=== PATIENT | female | born 1935 | race Caucasian/White ===

== ENCOUNTER → 2017-05-02 | Outpatient (CLI) | payer MEDICARE, BC ==
--- NOTE | 2017-05-03 13:37 | MM ---
Reason for exam: screening (asymptomatic). Last mammogram was performed 12 years and 7 months ago. History: Patient is postmenopausal and had first child after 29. Physical Findings: A clinical breast exam by your physician is recommended on an annual basis and results should be correlated with mammographic findings. MG Screening Mammo w CAD Bilateral CC and MLO view(s) were taken. No prior studies available for comparison. There are scattered fibroglandular densities. Finding: There are typically benign vascular calcifications in both breasts. ASSESSMENT: Benign, BI-RAD 2 RECOMMENDATION: Routine screening mammogram of both breasts in 1 year.
== END | disposition home or self-care (01) ==
LOC: RADMAMWWP 09:47
PROVIDERS: ATTEND Family Medicine
DX: Z12.31 Encounter for screening mammogram for malignant neoplasm of breast (principal)
CPT/HCPCS: 77067

== ENCOUNTER 2020-10-12 08:32 | Outpatient (CLI) | payer MEDICARE, BC | END 2020-10-12 09:51 | disposition home or self-care (01) | LOC: LABWHC1 08:32 | PROVIDERS: ATTEND Family Medicine | DX: Z53.9 Procedure and treatment not carried out, unspecified reason (principal) ==

== ENCOUNTER → 2020-10-27 | Outpatient (CLI) | payer MEDICARE, BC ==
--- NOTE | 2020-10-27 17:13 | US ---
EXAMINATION TYPE: US abdomen complete DATE OF EXAM: 10/27/2020 COMPARISON: Prev Renal only, 04/26/2015 CLINICAL HISTORY: R10.9 Abdominal pain. Pt states midline ABD discomfort EXAM MEASUREMENTS: Liver Length: 14.6 cm Gallbladder Wall: 0.2 cm CBD: 0.5 cm Spleen: 7.7 cm Right Kidney: 11.4 x 3.7 x 4.7 cm Left Kidney: 9.8 x 4.5 x 5.4 cm Pancreas: wnl, tail obscured by overlying bowel gas Liver: Small nonshadowing echogenic focus right posterior lobe= 0.4 cm Gallbladder: wnl Evidence for sonographic Ardon's sign: No CBD: wnl Spleen: wnl Right Kidney: Small cyst lower pole= 0.7 cm, otherwise appeared wnl Left Kidney: Multicystic, largest cyst upper pole= 3.8 x 3.5 x 4.5 cm, this is smaller than the prev ious cyst 6.1 cm. Upper IVC: wnl Abd Aorta: Wall calcifications IMPRESSION: 1. Bilateral renal cysts greater on the left. 2. Nonshadowing echogenic focus within the liver may be small calcified granuloma. Short-term 6 month follow-up ultrasound can be performed.
== END | disposition home or self-care (01) ==
LOC: RADUSWWP 07:02
PROVIDERS: ATTEND Family Medicine
DX: N28.1 Cyst of kidney, acquired (principal)
CPT/HCPCS: 76700

== ENCOUNTER → 2021-02-18 | Outpatient (CLI) | payer MEDICARE, BC ==
--- NOTE | 2021-02-18 10:58 | ECHOF ---
Referral Reason:R07.9 Chest pain, unspecified MEASUREMENTS -------- HEIGHT: 165.1 cm WEIGHT: 59.0 kg BP: 178/81 RVIDd: 3.2 cm (< 3.3) IVSd: 1.3 cm (0.6 - 1.1) LVIDd: 3.2 cm (3.9 - 5.3) LVPWd: 1.2 cm (0.6 - 1.1) IVSs: 1.6 cm LVIDs: 2.1 cm LVPWs: 1.4 cm LA Diam: 3.1 cm (2.7 - 3.8) LAESV Index (A-L): 19.45 ml/m Ao Diam: 3.0 cm (2.0 - 3.7) AV Cusp: 1.9 cm (1.5 - 2.6) MV EXCURSION: 14.273 mm (> 18.000) MV EF SLOPE: 59 mm/s (70 - 150) EPSS: 0.6 cm MV E Eleno: 0.49 m/s MV DecT: 375 ms MV A Eleno: 0.95 m/s MV E/A Ratio: 0.51 RAP: 5.00 mmHg RVSP: 38.78 mmHg FINDINGS -------- Sinus rhythm. This was a technically adequate study. The left ventricular size is normal. There is mild concentric left ventricular hypertrophy. Overa ll left ventricular systolic function is normal with, an EF between 55 - 60 %. The right ventricle is normal in size. Normal LA size by volume 22+/-6 ml/m2. The right atrium is normal in size. Interatrial and interventricular septum intact. There is mild aortic valve sclerosis. The mitral valve is normal. Mild tricuspid regurgitation present. There is mild pulmonary hypertension. The right ventricular systolic pressure, as measured by Doppler, is 38.78mmHg. There is no pulmonic regurgitation present. The aortic root size is normal. Normal inferior vena cava with normal inspiratory collapse consistent with estimated right atrial pre ssure of 5 mmHg. There is no pericardial effusion. CONCLUSIONS -------- 1. The left ventricular size is normal. 2. There is mild concentric left ventricular hypertrophy. 3. Overall left ventricular systolic function is normal with, an EF between 55 - 60 %. 4. There is mild aortic valve sclerosis. 5. Mild tricuspid regurgitation present. 6. There is mild pulmonary hypertension. 7. The right ventricular systolic pressure, as measured by Doppler, is 38.78mmHg. 8. There is no pulmonic regurgitation present. 9. There is no pericardial effusion. GATEMAN: Traci Soria RDCS
== END | disposition home or self-care (01) ==
LOC: RADECHMAIN 08:35
PROVIDERS: ATTEND Family Medicine
DX: I08.2 Rheumatic disorders of both aortic and tricuspid valves (principal); I27.20 Pulmonary hypertension, unspecified
CPT/HCPCS: 93306

== ENCOUNTER 2022-04-10 07:47 | Day surgery (SDC) | payer MEDICARE, BC ==
[2022-04-05 14:23] VITALS: BMI 20.7
--- NOTE | 2022-04-10 07:36 | P.GSHP ---
History of Present Illness H&P Date: 04/10/22 CHIEF COMPLAINT: Colon screen HISTORY OF PRESENT ILLNESS: The patient is a 86-year-old female who presents for colon screen. Lower endoscopy was offered for further evaluation and management. PAST MEDICAL HISTORY: Please see list. PAST SURGICAL HISTORY: Please see list. MEDICATIONS: Please see list. ALLERGIES: Please see list. SOCIAL HISTORY: No illicit drug use FAMILY HISTORY: No reports of Crohn disease or ulcerative colitis. REVIEW OF ORGAN SYSTEMS: CONSTITUTIONAL: No reports of fevers or chills. PHYSICAL EXAM: VITAL SIGNS: Stable GENERAL: Well-developed pleasant in no acute distress. HEENT: No scleral icterus. Extraocular movements grossly intact. Moist buccal mucosa. NECK: Supple without lymphadenopathy. CHEST: Unlabored respirations. Equal bilateral excursions. CARDIOVASCULAR: Regular rate and rhythm. Distal 2+ pulses. ABDOMEN: Soft, nontender, nondistended. MUSCULOSKELETAL: No clubbing, cyanosis, or edema. ASSESSMENT: 1. Colon screen. PLAN: 1. Recommend proceeding with a lower endoscopy Past Medical History Additional Past Medical History / Comment(s): osteoporosis, left inguinal hernia, occassional UTI. 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 - Past Family History Father Family Medical History: Cancer Additional Family Medical History / Comment(s): colon Sister(s) History Unknown: Yes Family Medical History: Cancer Additional Family Medical History / Comment(s): lung Medications and Allergies Home Medications Medication Instructions Recorded Confirmed Type Aspirin 325 mg PO BID PRN 04/05/22 04/05/22 History Calcium Carbonate [Calcium] 60 mg PO DAILY 04/05/22 04/05/22 History Cholecalciferol [Vitamin D3 (25 25 mcg PO DAILY 04/05/22 04/05/22 History Mcg = 1000 Iu)] Cognium 1 tab PO DAILY 04/05/22 04/05/22 History Eye Vitamin 1 tab PO DAILY 04/05/22 04/05/22 History Glucosamine Sulfate 200 mg PO DAILY 04/05/22 04/05/22 History Liver Aid 1 tab PO DAILY 04/05/22 04/05/22 History Magnesium Oxide [Magnesium] 500 mg PO DAILY 04/05/22 04/05/22 History [place]-3 Fatty Acids [[place]-3] 1,000 mg PO DAILY 04/05/22 04/05/22 History [place]-3/Dha/Epa/Fish Oil [Fish Oil 1 each PO DAILY 04/05/22 04/05/22 History 500 mg Softgel] Potassium Citrate 1 tab PO DAILY 04/05/22 04/05/22 History Zinc Gluconate [Zinc] 50 mg PO DAILY 04/05/22 04/05/22 History Allergies Allergy/AdvReac Type Severity Reaction Status Date / Time No Known Allergies Allergy Verified 04/05/22 13:44
[2022-04-10] MEDS ORDERED: LIDOCAINE 1% (10MG/ML) FOR IV START INTRADERMA PRN (08:37)
[2022-04-10] MEDS ORDERED: LACTATED RINGERS 1,000 ML IV SCH (08:37)
[2022-04-10 08:45] VITALS: TEMP 98.2
[2022-04-10] MEDS ORDERED: PROPOFOL 10 MG/ML 20 ML VIAL IV ONE (09:28)
[2022-04-10] MEDS ORDERED: LIDOCAINE 2% INJ 20 MG/ML (2 ML VIAL) ONE (09:28)
--- NOTE | 2022-04-10 10:04 | P.PCN ---
Date of Procedure: 04/10/22 Description of Procedure: PREOPERATIVE DIAGNOSIS: Rectal bleeding Personal history of colon polyps Family history malignant colon polyps POSTOPERATIVE DIAGNOSIS: Tubular adenoma hepatic flexure Sigmoid diverticulosis, severe Internal hemorrhoids, grade 3 OPERATION: Colonoscopy to the ileocecal valve and appendiceal orifice, cecum Colonoscopy with cold forceps biopsy SURGEON: Aliyah George MD. ANESTHESIA: MAC. INDICATIONS: The patient is an 86-year-old male who presents with rectal bleeding, family history of malignant colon polyps and personal history of colon polyps. Last colonoscopy 5 years. Benefits and risks were described and informed consent was obtained. DESCRIPTION OF PROCEDURE: The patient had undergone Sutab prep. The patient had been brought into the operating room and laid in the left lateral decubitus position. After adequate intravenous sedation, the rectum was examined with 2% lidocaine jelly. External hemorrhoids were encountered. The rectal tone was within normal limits. No lesions were palpated in the rectal vault. An Olympus colonoscope was advanced until the cecum, ileocecal valve and appendiceal orifice were clearly viewed. The prep was fair. Sigmoid diverticulosis severe was encountered. Abdominal pressure was used to advance the scope. Colonic polyps were found and removed. No evidence of focal colitis was found. Retroflexion of the scope demonstrated grade 3 internal hemorrhoids without active bleeding or inflammation. The colon was desufflated. The patient had tolerated the procedure well. Withdrawal time was over 6 minutes. FINDINGS: Aronchick preparation quality scale 3 (1-5) Internal hemorrhoids, grade 3 External hemorrhoids, grade 3. No arteriovenous malformations. Sigmoid diverticulosis, severe with redundant Removal of 1 polyps: - Cold forceps biopsy at hepatic flexure, 5 mm polyp. No focal colitis. RECOMMENDATIONS: Repeat colonoscopy 5 years, 2027 or sooner for issues Plan - Discharge Summary New Discharge Prescriptions: Continue Cholecalciferol [Vitamin D3 (25 Mcg = 1000 Iu)] 25 mcg PO DAILY Calcium Carbonate [Calcium] 60 mg PO DAILY [place]-3/Dha/Epa/Fish Oil [Fish Oil 500 mg Softgel] 1 each PO DAILY Zinc Gluconate [Zinc] 50 mg PO DAILY Potassium Citrate 1 tab PO DAILY [place]-3 Fatty Acids [[place]-3] 1,000 mg PO DAILY Glucosamine Sulfate 200 mg PO DAILY Eye Vitamin 1 tab PO DAILY Aspirin 325 mg PO BID PRN PRN Reason: Pain Magnesium Oxide [Magnesium] 500 mg PO DAILY Liver Aid 1 tab PO DAILY Cognium 1 tab PO DAILY Discharge Medication List Aspirin 325 mg PO BID PRN 04/05/22 [History] Calcium Carbonate [Calcium] 60 mg PO DAILY 04/05/22 [History] Cholecalciferol [Vitamin D3 (25 Mcg = 1000 Iu)] 25 mcg PO DAILY 04/05/22 [History] Cognium 1 tab PO DAILY 04/05/22 [History] Eye Vitamin 1 tab PO DAILY 04/05/22 [History] Glucosamine Sulfate 200 mg PO DAILY 04/05/22 [History] Liver Aid 1 tab PO DAILY 04/05/22 [History] Magnesium Oxide [Magnesium] 500 mg PO DAILY 04/05/22 [History] [place]-3 Fatty Acids [[place]-3] 1,000 mg PO DAILY 04/05/22 [History] [place]-3/Dha/Epa/Fish Oil [Fish Oil 500 mg Softgel] 1 each PO DAILY 04/05/22 [History] Potassium Citrate 1 tab PO DAILY 04/05/22 [History] Zinc Gluconate [Zinc] 50 mg PO DAILY 04/05/22 [History] Follow up Appointment(s)/Referral(s): Aliyah George MD [STAFF PHYSICIAN] - 04/18/22 Patient Instructions/Handouts: Diverticulosis Diet (GEN), Diverticulosis (ED), Colorectal Polyps (GEN) Activity/Diet/Wound Care/Special Instructions: Repeat colonoscopy as needed Discharge Disposition: HOME SELF-CARE
[2022-04-10 10:44] VITALS: BP 135/70; PULSE 69; RESP 20
== END 2022-04-10 10:40 | disposition home or self-care (01) ==
LOC: ORWHC2ENDO 07:47
PROVIDERS: ATTEND Surgery Plastic and Reconstructive Surgery
DX: D12.3 Benign neoplasm of transverse colon (principal); Z80.0 Family history of malignant neoplasm of digestive organs; K64.4 Residual hemorrhoidal skin tags; K57.30 Diverticulosis of large intestine without perforation or abscess without bleeding; K64.2 Third degree hemorrhoids; Z79.899 Other long term (current) drug therapy; Z79.810 Long term (current) use of selective estrogen receptor modulators (SERMs); Z79.82 Long term (current) use of aspirin; Z79.51 Long term (current) use of inhaled steroids; Z79.891 Long term (current) use of opiate analgesic; Z79.52 Long term (current) use of systemic steroids; M81.0 Age-related osteoporosis without current pathological fracture; Z87.19 Personal history of other diseases of the digestive system; Z87.440 Personal history of urinary (tract) infections; Z87.891 Personal history of nicotine dependence; Z80.1 Family history of malignant neoplasm of trachea, bronchus and lung; Z98.890 Other specified postprocedural states
CPT/HCPCS: 88305; 45380; J2704; J2001

== ENCOUNTER 2022-06-02 10:54 | Day surgery (SDC) | payer MEDICARE, BC ==
--- NOTE | 2022-06-02 06:47 | P.GSHP ---
History of Present Illness H&P Date: 06/02/22 CHIEF COMPLAINT: Ventral hernia. HISTORY OF PRESENT ILLNESS: The patient is a 86-year-old female who presents with swelling along the abdomen for over 1 year with pain and tenderness. Findings were consistent with ventral hernia. She reports change in bowel habits as a result. Now she presents for further evaluation and management. PAST MEDICAL HISTORY: Please see list and reviewed. PAST SURGICAL HISTORY: Please see list and reviewed. MEDICATIONS: Please see list and reviewed. ALLERGIES: Please see list and reviewed. SOCIAL HISTORY: Please see list and reviewed. FAMILY HISTORY: No reports of Crohn disease or ulcerative colitis. REVIEW OF ORGAN SYSTEMS: CONSTITUTIONAL: No reports of fevers or chills. LYMPHATIC: The patient denies any lumps and bumps around the neck. ENDOCRINE: Denies any thyroid disorders. Denies any blood sugar glucose intolerance. RESPIRATORY: Denies pneumonia. PHYSICAL EXAM: VITAL SIGNS: Stable GENERAL: Well-developed pleasant female in no acute distress. HEENT: No scleral icterus. Extraocular movements grossly intact. Moist buccal mucosa. NECK: Supple without lymphadenopathy. CHEST: Unlabored respirations. Equal bilateral excursions. CARDIOVASCULAR: Regular rate and rhythm. Distal 2+ pulses. ABDOMEN: Soft, nondistended. Tender along the left lower abdomen MUSCULOSKELETAL: No clubbing, cyanosis, or edema. SKIN: Well perfused. PSYCH: Alert and oriented. No focal or lateralizing signs. ASSESSMENT: 1. Ventral hernia PLAN: 1. Recommend proceeding with robotic ventral hernia repair with mesh. 2. Benefits and risks of surgical intervention was discussed including possibility of open technique. 3. DVT prophylaxis. 4. Antibiotic prophylaxis. 5. She is elevated risk with pre-existing heart disease 6. Nutritional assessment reviewed 7. Non-narcotic pain managment reviewed. Past Medical History Additional Past Medical History / Comment(s): osteoporosis, left inguinal hernia, occassional UTI. reports has no major medical conditions "but doesnt go to the doctor much" recent negative stress test History of Any Multi-Drug Resistant Organisms: None Reported Past Surgical History: Hysterectomy Additional Past Surgical History / Comment(s): hemmorhoidectomy, neck surgery Past Anesthesia/Blood Transfusion Reactions: No Reported Reaction Smoking Status: Former smoker - Past Family History Father Family Medical History: Cancer Additional Family Medical History / Comment(s): colon Sister(s) History Unknown: Yes Family Medical History: Cancer Additional Family Medical History / Comment(s): lung Medications and Allergies Home Medications Medication Instructions Recorded Confirmed Type Aspirin 325 mg PO BID PRN 04/05/22 05/30/22 History Calcium Carbonate [Calcium] 60 mg PO DAILY 04/05/22 05/30/22 History Cholecalciferol [Vitamin D3 (25 25 mcg PO DAILY 04/05/22 05/30/22 History Mcg = 1000 Iu)] Cognium 1 tab PO DAILY 04/05/22 05/30/22 History Eye Vitamin 1 tab PO DAILY 04/05/22 05/30/22 History Glucosamine Sulfate 200 mg PO DAILY 04/05/22 05/30/22 History Liver Aid 1 tab PO DAILY 04/05/22 05/30/22 History Magnesium Oxide [Magnesium] 500 mg PO DAILY 04/05/22 05/30/22 History [place]-3 Fatty Acids [[place]-3] 1,000 mg PO DAILY 04/05/22 05/30/22 History [place]-3/Dha/Epa/Fish Oil [Fish Oil 1 each PO DAILY 04/05/22 05/30/22 History 500 mg Softgel] Potassium Citrate 1 tab PO DAILY 04/05/22 05/30/22 History Zinc Gluconate [Zinc] 50 mg PO DAILY 04/05/22 05/30/22 History Allergies Allergy/AdvReac Type Severity Reaction Status Date / Time No Known Allergies Allergy Verified 05/30/22 11:52
[~2022-06-02 10:54] MED LIST: ACETAMINOPHEN TAB 500 MG TAB PO STA; DEXAMETHASONE SOD PHOSPHATE 4 MG/ML 1 ML VIAL IV ONE; HEPARIN SODIUM,PORCINE/PF 5,000 UNIT/0.5 ML SYRINGE SQ PRN; HYDROmorphone 0.5 MG/0.5 ML SYRINGE IVP PRN; LIDOCAINE 1% (10MG/ML) FOR IV START INTRADERMA PRN; ONDANSETRON 4 MG/2 ML VIAL IVP ONE
[2022-06-02] MEDS: LACTATED RINGERS 1,000 ML IV SCH ×2 (11:34→15:57)
[2022-06-02 11:52] LABS: Basophils # (A) 0.1 k/uL (0-0.2); Basophils % (A) 2 %; Eosinophils # (A) 0.1 k/uL (0-0.7); Eosinophils % (A) 3 %; HGB 16.4 gm/dL (11.4-16.0); Lymphocytes # (A) 1.3 k/uL (1.0-4.8); Lymphocytes % (A) 28 %; MCH 31.8 pg (25.0-35.0); MCHC 34.1 g/dL (31.0-37.0); MCV 93.2 fL (80.0-100.0); Monocytes # (A) 0.3 k/uL (0-1.0); Monocytes % (A) 7 %; Neutrophils # (A) 2.8 k/uL (1.3-7.7); Neutrophils % (A) 58 %; Platelet Count 197 k/uL (150-450); RBC 5.15 m/uL (3.80-5.40); RDW 14.2 % (11.5-15.5); WBC 4.8 k/uL (3.8-10.6)
[2022-06-02] MEDS ORDERED: MIDAZOLAM 2 MG/2 ML VIAL IVP ONE ×2 (12:07→12:09)
[2022-06-02] MEDS ORDERED: LIDOCAINE 2% INJ 20 MG/ML (2 ML VIAL) ONE (12:27)
[2022-06-02] MEDS ORDERED: PHENYLEPHRINE-0.9% NACL SYG 1,000 MCG/10 ML SYRINGE ONE (12:27)
[2022-06-02] MEDS ORDERED: SODIUM CHLORIDE 0.9% (PF) 10 ML VIAL ONE (12:27)
[2022-06-02] MEDS ORDERED: NEOSTIGMINE 1 MG/ML 10 ML VIAL ONE (12:27)
[2022-06-02] MEDS ORDERED: fentaNYL (PF) 50 MCG/ML 2 ML AMP ONE (12:27)
[2022-06-02] MEDS ORDERED: PROPOFOL 10 MG/ML 20 ML VIAL IV ONE (12:27)
[2022-06-02] MEDS ORDERED: GLYCOPYRROLATE 0.2 MG/ML 2 ML VIAL ONE (12:27)
[2022-06-02] MEDS ORDERED: ROPIVACAINE 5 MG/ML 30 ML VIAL ONE (12:27)
[2022-06-02] MEDS ORDERED: ROCURONIUM 10 MG/ML (5 ML VIAL) IV ONE (12:27)
[2022-06-02] MEDS ORDERED: DEXAMETHASONE SOD PHOSPHATE 4 MG/ML 1 ML VIAL ONE (12:27)
[2022-06-02] MEDS ORDERED: ePHEDrine 50 MG/ML 1 ML VIAL ONE (12:27)
--- NOTE | 2022-06-02 12:29 | P.ANPRN ---
Procedure Note - Anesthesia - Nerve Block Performed Bilateral Erector Spinae Single Time Out Performed: Yes Date of Procedure: 06/02/22 Procedure Start Time: 12:06 Procedure Stop Time: 12:13 Location of Patient: PreOp Indication: Acute Post-Operative Pain, Requested by Surgeon Sedation Type: Sedate with meaningful contact maintained Preparation: Sterile Prep Position: Sitting Needle Types: Pajunk Needle Gauge: 21 Ultrasound used to visualize needle placement: Yes Ultrasound used to observe medication spread: Yes Injectate: 0.5% Ropivacaine (see comment for volume) (15 ml +15 ml ns + 4 mg dexamethasone per side) Blood Aspirated: No Pain Paresthesia on Injection Noted: No Resistance on Injection: Normal Image Stored and Saved: Yes Events: Uneventful and Well Tolerated
[2022-06-02] MEDS ORDERED: BUPIVACAIN-EPI 0.25%-1:200,000 30 ML VIAL SQ ONE ×2 (12:55→13:03)
[2022-06-02] MEDS ORDERED: LACTATED RINGERS 1,000 ML IV ONE ×2 (12:56→14:00)
[2022-06-02 13:07] LABS: Calcium 9.1 mg/dL (8.4-10.2); Potassium 4.4 mmol/L (3.5-5.1); Total Bilirubin 0.5 mg/dL (0.2-1.3); Total Protein 6.5 g/dL (6.3-8.2)
[2022-06-02] MEDS ORDERED: HYDROmorphone 1 MG/ML 1 ML SYRINGE IVP PRN (15:16)
[2022-06-02] MEDS ORDERED: NALOXONE 0.4 MG/ML 1 ML VIAL IV PRN (15:16)
[2022-06-02] MEDS ORDERED: ASPIRIN 325 MG TAB PO PRN (15:18)
[2022-06-02] MEDS ORDERED: SODIUM CHLORIDE 0.9% 1,000 ML IV SCH (15:30)
[2022-06-02] MEDS: HEPARIN SODIUM,PORCINE/PF 5,000 UNIT/0.5 ML SYRINGE SQ SCH (21:01)
[2022-06-02] MEDS: ACETAMINOPHEN TAB 325 MG TAB PO PRN (21:01)
--- NOTE | 2022-06-02 21:26 | P.OP ---
Date of Procedure: 06/02/22 Description of Procedure: SURGEON: BENJAMIN BEARD MD PREOPERATIVE DIAGNOSES: 1. Left inguinal swelling and pain 2. Osteoporosis POSTOPERATIVE DIAGNOSES: 1. Incarcerated left inguinal hernia with incarcerated small bowel, initial 2. Left inguinal subfascial tumor, 4 x 4 cm, subfascial/inguinal canal 3. Osteoporosis OPERATION: 1. Robotic assisted da Kell Xi laparoscopic excision of left inguinal tumor, 4 x 4 cm, subfascial/inguinal canal 2. Robotic assisted da Kell Xi laparoscopic left indirect inguinal hernia repair with ventralight ST mesh, 11.4 cm. ANESTHESIA: General with local anesthetic ESTIMATED BLOOD LOSS: 5 mL. SPECIMENS REMOVED: None. COMPLICATIONS: None. FINDINGS: 1. Subfascial left inguinal tumor resected 4 x 4 cm 2. Diastases recti of the lower abdomen INDICATIONS: The patient is a 86-year-old female who presents with history of left-sided pain. Now she presents for definitive surgical intervention. Laparoscopic versus open and robotic approaches were discussed. Benefits and risks including bleeding, infection, and chronic groin pain were reviewed. Placement of mesh was also described. Informed consent was obtained. DESCRIPTION: In the preoperative area, the patient was marked with indelible marker along the left groin. The patient was brought to the operating room and initially laid in supine position. After general induction, the abdomen had been prepped and draped in standard sterile fashion. Ioban draping was also placed. Prior to incision, a timeout protocol was confirmed with surgical team regarding patient's name including procedures to be performed and location along the left groin. Initial positioning for the robotic assisted ports were selected whereby 20 cm superior to the target anatomy, 0 degree 5 mm laparoscopic trocar entry was performed at the left upper quadrant. The abdomen was insufflated to 15 mmHg which she had tolerated well. Diagnostic laparoscopy demonstrated a defect along the left groin. The small bowel was incarcerated in the left groin. No defects were identified along the right groin. Next, along the epigastrium, 8 mm robot trocar was placed. An 8-mm robotic trocar was placed under direct visualization at the right upper quadrant. The 5 mm port was exchanged for a 8 mm trocar. All trocars were positioned 10-cm apart from each other. An additional 12 mm trochars placed along the right lateral upper quadrant. The [employer] Kell Intuitive XI robot was primed, draped, prepared for docking along the right side of the patient. I then went to the Mode[employer] Xi console. The mortgage loan assistant was at bedside for exchange of the robot arms and equipment. At the left groin, the peritoneum was scored over the initial small 3 cm defect. The small bowel was reduced from the incarcerated left inguinal hernia. The hernia sac was evaginated whereby the peritoneum was scored using Endo scissors with cautery. Additionally, a 4 x 4 cm subfascial inguinal canal tumor was excised and evaginated into the peritoneal cavity using vessel sealer Once completely reduced into the abdominal cavity, the peritoneal sac of the hernia was stripped. The sac was resected and then passed off for further pathological analysis. The size of the hernia defect was 3 cm with intraoperative films obtained. Using a nonabsorbable 2-0 VLOC, the peritoneal defect of the left inguinal hernia site was closed using a pursestring suture. The defect was found to be completely closed with complete reduction of the left inguinal hernia was confirmed. As an onlay, an 11.[address] mesh by [employer] was cut in half and entered into the abdominal cavity via the 8 mm trocar. The mesh was tacked to the pelvis using absorbable 2-0 VLOC x 9-inch length sutures. The robot was undocked from the patient's bedside. I then rescrubbed into the case. The specimen was removed from the abdominal cavity from the left upper quadrant port site. [place]-Melany 0 Vicryl was used to close the 12 mm trocar site. Insufflation was released from the abdominal cavity and all instruments were removed from the abdominal cavity. The rest of incisions were reapproximated using 4-0 Monocryl in a running subcuticular fashion. Local anesthetic was placed along the incision including for a groin block. Incisions were cleansed using dilute hydrogen peroxide. Exofin was applied to the skin. At the end of the procedure, the needle, sponge and instrument counts had been verified correct by the ophthalmology surgical technician. The patient had tolerated the procedure well and was taken to the postanesthesia care unit in stable condition.
--- NOTE | 2022-06-02 21:27 | P.PN ---
Progress Note - Text Progress Note Date: 06/02/22 Postoperatively in the recovery room, patient was difficult to arouse after anesthesia with new transient cardiac arrhythmia. Patient recommended to stay overnight for observation including medicine consultation.
[2022-06-03] MEDS: LACTATED RINGERS 1,000 ML IV SCH (04:51)
[2022-06-03 08:14] VITALS: BP 113/64; PULSE 55; RESP 16; TEMP 98.3
[2022-06-03] MEDS: HEPARIN SODIUM,PORCINE/PF 5,000 UNIT/0.5 ML SYRINGE SQ SCH (08:56)
[2022-06-03] MEDS ORDERED: MAGNESIUM OXIDE 400 MG TAB PO SCH (09:00)
--- NOTE | 2022-06-03 09:48 | P.DS ---
Providers Date of admission: 06/02/2022 Expected date of discharge: 06/03/22 Attending physician: Aliyah George Consults: 06/02/22 06:48 Consult Physician Routine Consulting Provider: [facility] Consult Reason/Comments: Anesthesia [facility] Do you want consulting provider notified?: Yes 06/02/22 16:43 Consult Physician Routine Consulting Provider: Bossman Rae Consult Reason/Comments: Medical management Do you want consulting provider notified?: Yes Primary care physician: Eulogio Florentino [facility] Course: This 76-year-old female underwent laparoscopic ventral hernia repair with Dr. Ch. Patient was observed overnight. Patient felt well on postoperative day 1 and wished to go home. Procedures: Ventral hernia repair Patient Condition at Discharge: Good Plan - Discharge Summary Discharge Rx Participant: No New Discharge Prescriptions: New Docusate [Colace] 100 mg PO BID #20 capsule Ibuprofen [Motrin] 600 mg PO Q6HR PRN #40 tab PRN Reason: Pain Acetaminophen Tab [Tylenol] 650 mg PO Q6H #30 tab oxyCODONE HCL [OxyIR] 5 mg PO Q6H PRN 3 Days #10 tab PRN Reason: Pain No Action Cholecalciferol [Vitamin D3 (25 Mcg = 1000 Iu)] 25 mcg PO DAILY Calcium Carbonate [Calcium] 60 mg PO DAILY [place]-3/Dha/Epa/Fish Oil [Fish Oil 500 mg Softgel] 1 each PO DAILY Zinc Gluconate [Zinc] 50 mg PO DAILY Potassium Citrate 1 tab PO DAILY [place]-3 Fatty Acids [[place]-3] 1,000 mg PO DAILY Glucosamine Sulfate 200 mg PO DAILY Eye Vitamin 1 tab PO DAILY Aspirin 325 mg PO BID PRN PRN Reason: Pain Magnesium Oxide [Magnesium] 500 mg PO DAILY Liver Aid 1 tab PO DAILY Cognium 1 tab PO DAILY Discharge Medication List Aspirin 325 mg PO BID PRN 04/05/22 [History] Calcium Carbonate [Calcium] 60 mg PO DAILY 04/05/22 [History] Cholecalciferol [Vitamin D3 (25 Mcg = 1000 Iu)] 25 mcg PO DAILY 04/05/22 [History] Cognium 1 tab PO DAILY 04/05/22 [History] Eye Vitamin 1 tab PO DAILY 04/05/22 [History] Glucosamine Sulfate 200 mg PO DAILY 04/05/22 [History] Liver Aid 1 tab PO DAILY 04/05/22 [History] Magnesium Oxide [Magnesium] 500 mg PO DAILY 04/05/22 [History] [place]-3 Fatty Acids [[place]-3] 1,000 mg PO DAILY 04/05/22 [History] [place]-3/Dha/Epa/Fish Oil [Fish Oil 500 mg Softgel] 1 each PO DAILY 04/05/22 [History] Potassium Citrate 1 tab PO DAILY 04/05/22 [History] Zinc Gluconate [Zinc] 50 mg PO DAILY 04/05/22 [History] Acetaminophen Tab [Tylenol] 650 mg PO Q6H #30 tab 06/03/22 [Rx] Docusate [Colace] 100 mg PO BID #20 capsule 06/03/22 [Rx] Ibuprofen [Motrin] 600 mg PO Q6HR PRN #40 tab 06/03/22 [Rx] oxyCODONE HCL [OxyIR] 5 mg PO Q6H PRN 3 Days #10 tab 06/03/22 [Rx] Follow up Appointment(s)/Referral(s): Aliyah George MD [STAFF PHYSICIAN] - 1 Week
--- NOTE | 2022-06-03 11:00 | P.PN ---
Progress Note - Text Progress Note Date: 06/03/22 Discussion with care team. Patient doing well. No cardiac events overnight. Only requiring tylenol. Medical reconciliation performed. Abdominal binder ordered. Per nurse, patient was stable at discharge. Patient seen by rounding provider and discharged.
[2022-06-03] MEDS: ACETAMINOPHEN TAB 325 MG TAB PO PRN (13:08)
== END 2022-06-03 13:48 | disposition home or self-care (01) ==
LOC: OR 10:54 → 5NMEDONC 14:07 → OR 06-03 13:48
PROVIDERS: ATTEND Surgery Plastic and Reconstructive Surgery
DX: K40.30 Unilateral inguinal hernia, with obstruction, without gangrene, not specified as recurrent (principal); M81.0 Age-related osteoporosis without current pathological fracture; Z87.440 Personal history of urinary (tract) infections; Z87.891 Personal history of nicotine dependence
CPT/HCPCS: 94760; 86900; 86901; 80053; 85025; 86850; 49650; J2250; J1100; J0690; J2405; J1644 ×2; 88302

== ENCOUNTER 2024-06-13 15:35 | Observation (INO) | payer MEDICARE, BC ==
--- NOTE | 2024-06-13 16:07 | ED ---
General Adult HPI - General Source: patient, RN notes reviewed <Nayeli Vidales - Last Filed: 06/13/24 16:06> <Pallavi Malcolm - Last Filed: 06/14/24 16:29> - General Stated complaint: Chest pain Time Seen by Provider: 06/13/24 15:51 - History of Present Illness Initial comments: Quick [id number] female presenting emergency room with referral from urgent care for complaint of left-sided chest/rib pain. Patient states that this has been going on for a while however states that pain worsened today. States the pain has been radiating up into her armpit. She denies associated difficulty breathing, nausea or vomiting. (Nayeli Vidales) Patient is an 88-year-old female with no significant past medical history presenting today for left-sided chest pain. Patient states has been occurring intermittently over the last year but over the last 2 days has become more constant and changed somewhat in quality. The pain is described as pressure that feels like her bra was too tight. This did not resolve with loosening her block bra. This morning it began radiating to into her left arm. She was seen at a local urgent care and directed to come to the emergency department. She denies shortness of breath, cough, rash, dizziness, headache, numbness or weakn ess. Denies history ACS. Pain worsens with activity and sitting up. Has not tried any medications at home for the pain. No history ACS. Non-smoker. No first-degree relatives with history of a heart attack. No history hypertension, high cholesterol or diabetes. Endorses a gnawing feeling in her stomach but denies abdominal pain. (Pallavi Malcolm) - Related Data Home Medications Medication Instructions Recorded Confirmed Cholecalciferol [Vitamin D3 (25 25 mcg PO DAILY 04/05/22 06/13/24 Mcg = 1000 Iu)] Magnesium Oxide [Magnesium] 500 mg PO DAILY 04/05/22 06/13/24 Ascorbic Acid [Vitamin C] 1,000 mg PO DAILY 06/13/24 06/13/24 Ginkgo Biloba [place] Extract [Ginkgo] 60 mg PO DAILY 06/13/24 06/13/24 [place]-3/Dha/Epa/Fish Oil [Fish Oil 1 cap PO DAILY 06/13/24 06/13/24 1,000 mg Softgel] Allergies Allergy/AdvReac Type Severity Reaction Status Date / Time No Known Allergies Allergy Verified 06/13/24 20:09 Review of Systems ROS Other: All systems not noted in ROS Statement are negative. <Nayeli Vidales - Last Filed: 06/13/24 16:06> ROS Other: All systems not noted in ROS Statement are negative. <Pallavi Malcolm - Last Filed: 06/14/24 16:29> ROS Statement: Those systems with pertinent positive or pertinent negative responses have been documented in the HPI. Past Medical History Additional Past Medical History / Comment(s): osteoporosis, left inguinal hernia, occassional UTI. reports has no major medical conditions "but doesnt go to the doctor much" recent negative stress test History of Any Multi-Drug Resistant Organisms: None Reported Past Surgical History: Hysterectomy Additional Past Surgical History / Comment(s): hemmorhoidectomy, neck surgery Past Anesthesia/Blood Transfusion Reactions: No Reported Reaction Smoking Status: Former smoker - Past Family History Father Family Medical History: Cancer Additional Family Medical History / Comment(s): colon Sister(s) History Unknown: Yes Family Medical History: Cancer Additional Family Medical History / Comment(s): lung <Nayeli Vidales - Last Filed: 06/13/24 16:06> General Exam <Nayeli Vidales - Last Filed: 06/13/24 16:06> <Pallavi Malcolm - Last Filed: 06/14/24 16:29> - General Exam Comments Initial Comments: Visual Physical Exam Vital signs reviewed General: Well-appearing, nontoxic, no acute distress. Head: Normocephalic, atraumatic Eyes: PERRLA, EOMI ENT: Airway patent Chest: Nonlabored breathing Skin: No visual rash, normal skin tone Neuro: Alert and oriented 3 Musculoskeletal: No gross abnormalities (SobeidaNayeli) PE: CONSTITUTIONAL: [no apparent distress, well appearing] SKIN: [warm, dry, no jaundice, hives or petechiae] EYES:[ pupils are equally round, extraocular movements intact without nystagmus, clear conjunctiva, non-icteric sclera] HENT: [normocephalic, atraumatic, moist mucus membranes, oropharynx clear without exudates] NECK: , [Full range of motion, normal appearance] PULMONARY: [clear to auscultation without wheezes, rhonchi, or rales, normal excursion, no accessory muscle use and no stridor] CARDIOVASCULAR:[Chest wall is nontender to palpation, no palpable masses or rashes, regular rate, rhythm, normal S1 and S2. No appreciated murmurs, rubs or gallops. Strong radial pulses with intact distal perfusion. No lower extremity edema] GASTROINTESTINAL: [soft, active bowel sounds throughout, non-tender, non- distended, no palpable masses, no rebound or guarding. No hepatosplenomegaly] GENITOURINARY: MUSCULOSKELETAL: [Extremities have no gross deformity, no edema, redness, or swelling. No calf swelling ] NEUROLOGIC: [_a/o x 3, GCS 15, normal mentation and speech. Moves all extremities x 4 without motor or sensory deficit] PSYCHIATRIC:[ _normal mood and affect, thought process is clear and linear] (Pallavi Malcolm) Course Vital Signs 06/13/24 06/13/24 06/13/24 16:08 17:59 18:00 Temperature 98.0 F 98 F Pulse Rate 100 85 75 Pulse Rate [ Finish Patcher ] Respiratory 17 20 20 Rate Blood Pressure 175/99 170/85 170/85 O2 Sat by Pulse 95 98 98 Oximetry 06/13/24 06/13/24 06/13/24 18:01 18:02 19:05 Temperature Pulse Rate 67 Pulse Rate [ 75 Finish Patcher ] Respiratory 20 16 Rate Blood Pressure 125/72 O2 Sat by Pulse 97 Oximetry 06/13/24 06/14/24 06/14/24 20:55 00:45 01:29 Temperature 98.4 F Pulse Rate 71 62 78 Pulse Rate [ Finish Patcher ] Respiratory 17 18 18 Rate Blood Pressure 130/74 122/62 115/57 O2 Sat by Pulse 97 90 L 93 L Oximetry 06/14/24 06/14/24 06/14/24 03:15 05:00 07:00 Temperature 97.5 F L Pulse Rate 68 63 Pulse Rate [ Finish Patcher ] Respiratory 17 18 Rate Blood Pressure 127/54 123/56 O2 Sat by Pulse 94 L 96 Oximetry 06/14/24 07:10 Temperature Pulse Rate 67 Pulse Rate [ Finish Patcher ] Respiratory 17 Rate Blood Pressure 143/69 O2 Sat by Pulse 96 Oximetry EKG Findings - EKG Comments: EKG Findings:: Sinus rhythm, right bundle branch block, rate 82 bpm intervals within except limits, normal axis, T wave inversion lead V1, V2, V3 as well as aVR,no STEMI compared to EKG performed in May 2022, right bundle branch block is new from prior <Pallavi Malcolm - Last Filed: 06/14/24 16:29> Medical Decision Making <Nayeli Vidales - Last Filed: 06/13/24 16:06> - Lab Data Result diagrams: 06/13/24 16:36 06/13/24 16:36 <Pallavi Malcolm - Last Filed: 06/14/24 16:29> - Medical Decision Making I completed the quick note portion of this chart signed Nayeli Vidales PA-C (Nyaeli Vidales) Was pt. sent in by a medical professional or institution (BRENDA Ovalle, [employer]PER[employer]OR, urgent care, hospital, or fdc...) When possible be specific @ -Patient was sent over from urgent care Did you speak to anyone other than the patient for history (EMS, parent, family, police, friend...)? What history was obtained from this source @ -No Did you review nursing and triage notes (agree or disagree)? Why? @ -I reviewed nursing and triage notes Were old charts reviewed (outside hosp., previous admission, EMS record, old EKG, old radiological studies, urgent care reports/EKG's, fdc records)? Report findings @ -Medical records reviewed reviewed prior EKG, see comparison above Differential Diagnosis (chest pain, altered mental status, abdominal pain women, abdominal pain men, vaginal bleeding, weakness, fever, dyspnea, syncope, headache, dizziness, GI bleed, back pain, seizure, CVA, palpatations, mental health, musculoskeletal)? @ -Differential Chest Pain: Stable Angina, Unstable Angina, STEMI, NSTEMI Aortic Dissection, pericarditis, pleurisy, chostochondirits, Pneumothorax, Musculoskeletal, Esophageal Spasm GERD, Cholecystitis, Pancreatitis, Zoster, this is not meant to be an all- inclusive list. EKG interpreted by me (3pts min.). @ -I personally reviewed chest x-ray see no cardiomegaly, consolidations or pleural effusions I agree with radiologist interpretation X-rays interpreted by me (1pt min.). @ -Personally reviewed chest x-ray, I see no cardiomegaly or pleural effusions I agree with radiologist interpretation CT interpreted by me (1pt min.). @ -None done U/S interpreted by me (1pt. min.). @ -None done What testing was considered but not performed or refused? (CT, X-rays, U/S, labs)? Why? @ -None What meds were considered but not given or refused? Why? @ -None Did you discuss the management of the patient with other professionals (professionals i.e. , PA, [employer]PERVISOR, lab, RT, psych nurse, social services aide, process excellence manager, teacher, retail loss prevention officer, watch case polisher)? Give summary @ -No Was smoking cessation discussed for >3mins.? @ -No Was critical care preformed (if so, how long)? @ -No Were there social determinants of health that impacted care today? How? (Homelessness, low income, unemployed, alcoholism, drug addiction, piper sportation, low edu. Level, literacy, decrease access to med. care, long-term, rehab)? @ -No Was there de-escalation of care discussed even if they declined (Discuss DNR or withdrawal of care, Hospice)? @ -No What co-morbidities impacted this encounter? (DM, HTN, Smoking, COPD, CAD, Cancer, CVA, ARF, Chemo, Hep., AIDS, mental health diagnosis, sleep apnea, morbid obesity)? @ -None Was patient admitted / discharged? Hospital course, mention meds given and route, prescriptions, significant lab abnormalities, going to OR and other pertinent info. @ -admission. Send is an 88-year-old female no significant medical history presenting for left-sided pressure-like chest pain radiating to the left shou lder. Associated gnawing feeling in her stomach and indigestion. No shortness of breath. ATP orders were placed by triage provider. I reviewed these and overall they are reassuring. No STEMI though EKG does not appear entirely reassuring given she has a new right bundle branch block. Discussed with patient plan for admission for chest pain. She is agreeable plan of care. Case was discussed with RADHA Pruett who kindly accepted patient for admission. Undiagnosed new problem with uncertain prognosis? @ -No Drug Therapy requiring intensive monitoring for toxicity (Heparin, Nitro, Insulin, Cardizem)? @ -No Were any procedures done? @ -No Diagnosis/symptom? @ -Chest pain Acute, or Chronic, or Acute on Chronic? Acute Uncomplicated (without systemic symptoms) or Complicated (systemic symptoms)? Uncomplicated Side effects of treatment? @ -No Exacerbation, Progression, or Severe Exacerbation? @ -No Poses a threat to life or bodily function? How? (Chest pain, [place], SD, pneumonia, PE, COPD, DKA, ARF, appy, cholecystitis, CVA, Diverticulitis, Homicidal, Suicidal, threat to staff... and all critical care pts) @Potentially if secondary to ACS (Pallavi Malcolm) - Lab Data Lab Results 06/13/24 06/13/24 06/13/24 Range/Units 16:36 16:36 16:36 WBC 8.0 (3.8-10.6) k/uL RBC 5.14 (3.80-5.40) m/uL Hgb 15.5 (11.4-16.0) gm/dL Hct 48.4 H (34.0-46.0) % MCV 94.0 (80.0-100.0) fL MCH 30.1 (25.0-35.0) pg MCHC 32.0 (31.0-37.0) g/dL RDW 13.9 (11.5-15.5) % Plt Count 231 (150-450) k/uL MPV 7.3 Neutrophils % 69 % Lymphocytes % 22 % Monocytes % 6 % Eosinophils % 1 % Basophils % 1 % Neutrophils # 5.5 (1.3-7.7) k/uL Lymphocytes # 1.8 (1.0-4.8) k/uL Monocytes # 0.5 (0-1.0) k/uL Eosinophils # 0.1 (0-0.7) k/uL Basophils # 0.1 (0-0.2) k/uL PT 10.6 (10.0-12.5) sec INR 1.0 (<1.2) APTT 25.0 (22.0-30.0) sec Sodium 137 (137-145) mmol/L Potassium 4.4 (3.5-5.1) mmol/L Chloride 100 (98-107) mmol/L Carbon Dioxide 27 (22-30) mmol/L Anion Gap 10 mmol/L BUN 19 H (7-17) mg/dL Creatinine 0.86 (0.52-1.04) mg/dL Est GFR (CKD-EPI)AfAm 70 (>60 ml/min/1.73 sqM) Est GFR (CKD-EPI)NonAf 61 (>60 ml/min/1.73 sqM) Glucose 101 H (74-99) mg/dL Calcium 9.6 (8.4-10.2) mg/dL Magnesium 1.9 (1.6-2.3) mg/dL Total Bilirubin 0.5 (0.2-1.3) mg/dL AST 25 (14-36) U/L ALT 19 (4-34) U/L Alkaline Phosphatase 57 (38-126) U/L Troponin I (0.000-0.034) ng/mL Total Protein 7.1 (6.3-8.2) g/dL Albumin 4.5 (3.5-5.0) g/dL Lipase (23-300) U/L 06/13/24 06/13/24 Range/Units 16:36 16:36 WBC (3.8-10.6) k/uL RBC (3.80-5.40) m/uL Hgb (11.4-16.0) gm/dL Hct (34.0-46.0) % MCV (80.0-100.0) fL MCH (25.0-35.0) pg MCHC (31.0-37.0) g/dL RDW (11.5-15.5) % Plt Count (150-450) k/uL MPV Neutrophils % % Lymphocytes % % Monocytes % % Eosinophils % % Basophils % % Neutrophils # (1.3-7.7) k/uL Lymphocytes # (1.0-4.8) k/uL Monocytes # (0-1.0) k/uL Eosinophils # (0-0.7) k/uL Basophils # (0-0.2) k/uL PT (10.0-12.5) sec INR (<1.2) APTT (22.0-30.0) sec Sodium (137-145) mmol/L Potassium (3.5-5.1) mmol/L Chloride (98-107) mmol/L Carbon Dioxide (22-30) mmol/L Anion Gap mmol/L BUN (7-17) mg/dL Creatinine (0.52-1.04) mg/dL Est GFR (CKD-EPI)AfAm (>60 ml/min/1.73 sqM) Est GFR (CKD-EPI)NonAf (>60 ml/min/1.73 sqM) Glucose (74-99) mg/dL Calcium (8.4-10.2) mg/dL Magnesium (1.6-2.3) mg/dL Total Bilirubin (0.2-1.3) mg/dL AST (14-36) U/L ALT (4-34) U/L Alkaline Phosphatase (38-126) U/L Troponin I <0.012 (0.000-0.034) ng/mL Total Protein (6.3-8.2) g/dL Albumin (3.5-5.0) g/dL Lipase 199 (23-300) U/L Disposition <Nayeli Vidales - Last Filed: 06/13/24 16:06> <Pallavi Malcolm - Last Filed: 06/14/24 16:29> Clinical Impression: Chest pain Disposition: ADMITTED IP TO THIS HOSP Condition: Stable
[2024-06-13 16:54] LABS: Basophils # (A) 0.1 k/uL (0-0.2); Basophils % (A) 1 %; Eosinophils # (A) 0.1 k/uL (0-0.7); Eosinophils % (A) 1 %; HCT 48.4 % (34.0-46.0); HGB 15.5 gm/dL (11.4-16.0); Lymphocytes # (A) 1.8 k/uL (1.0-4.8); Lymphocytes % (A) 22 %; MCH 30.1 pg (25.0-35.0); Mean Platelet Volume 7.3; Monocytes # (A) 0.5 k/uL (0-1.0); Monocytes % (A) 6 %; Neutrophils # (A) 5.5 k/uL (1.3-7.7); Neutrophils % (A) 69 %; Platelet Count 231 k/uL (150-450); RBC 5.14 m/uL (3.80-5.40); RDW 13.9 % (11.5-15.5)
[2024-06-13 17:00] LABS: ALT 19 U/L (4-34); AST 25 U/L (14-36); African American GFR (CKD) 70 (>60 ml/min/1.73 sqM); Albumin 4.5 g/dL (3.5-5.0); Alkaline Phosphatase 57 U/L (38-126); Anion Gap 10 mmol/L; Blood Urea Nitrogen 19 mg/dL (7-17); Calcium 9.6 mg/dL (8.4-10.2); Carbon Dioxide 27 mmol/L (22-30); Chloride 100 mmol/L (98-107); Glucose 101 mg/dL (74-99); Magnesium 1.9 mg/dL (1.6-2.3); Non-African American GFR(CKD) 61 (>60 ml/min/1.73 sqM); Potassium 4.4 mmol/L (3.5-5.1); Sodium 137 mmol/L (137-145); Total Bilirubin 0.5 mg/dL (0.2-1.3); Total Protein 7.1 g/dL (6.3-8.2)
[2024-06-13 17:03] LABS: Prothrombin Time 10.6 sec (10.0-12.5)
--- NOTE | 2024-06-13 18:05 | XR ---
EXAMINATION TYPE: XR chest 2V DATE OF EXAM: 06/13/2024 5:49 PM COMPARISON: None CLINICAL INDICATION: Female, 88 years old with history of Chest Pain; [facility] TECHNIQUE: XR chest 2V Frontal and lateral views of the chest. FINDINGS: Lungs/Pleura: There is flattening of the diaphragm with increased lucency of the lungs. No evidence o f pneumothorax, pleural effusion or focal consolidation. Pulmonary vascularity: Unremarkable. Heart/mediastinum: Cardiomediastinal silhouette is unremarkable. Musculoskeletal: No acute osseous pathology. IMPRESSION: 1. No acute cardiopulmonary disease process. 2. COPD changes. [facility], , 06/13/2024 6:03 PM
[2024-06-13] MEDS: ACETAMINOPHEN TAB 500 MG TAB PO STA (18:45)
[2024-06-13] MEDS: ASPIRIN 81 MG PO STA (18:45)
[2024-06-13] MEDS: NITROGLYCERIN SL TABS 0.4 MG TAB SUBLINGUAL STA (18:46)
[2024-06-13] MEDS ORDERED: NALOXONE 0.4 MG/ML 1 ML VIAL IV PRN (20:52)
[2024-06-13] MEDS ORDERED: ACETAMINOPHEN TAB 325 MG TAB PO PRN (20:52)
[2024-06-13] MEDS ORDERED: ALPRAZolam 0.25 MG TAB PO PRN (20:52)
[2024-06-13] MEDS ORDERED: MAG HYDROX/AL HYDROX/SIMETH 30 ML CUP PO PRN (20:52)
[2024-06-13] MEDS ORDERED: traMADol 50 MG TAB PO PRN (20:52)
[2024-06-13] MEDS ORDERED: ONDANSETRON 4 MG/2 ML VIAL IVP PRN (20:52)
[2024-06-13] MEDS ORDERED: CALCIUM CARBONATE 500 MG CHEWABLE PO PRN (20:52)
[2024-06-13] MEDS ORDERED: MORPHINE SULFATE 4 MG/ML SYRINGE IV PRN (20:52)
[2024-06-14] MEDS: FAMOTIDINE 20 MG TAB PO SCH (01:27)
[2024-06-14 07:14] VITALS: BP 143/69; PULSE 67; RESP 17
[2024-06-14 07:43] VITALS: TEMP 97.5
--- NOTE | 2024-06-14 09:43 | P.HPIM ---
History of Present Illness H&P Date: 06/14/24 History of present illness; patient is a 88-year-old lady with no significant past medical history who presented to the ER because of chest pain. Patient stated that she has been having this pain for a couple of months but over the last couple of days the left sided chest pain worsened.chest pain is left-sided, pressure-like, beneath her left breast feels like the if she is wearing a tight bra, radiating down her left arm , related by sitting up and exerting, no relieving factor associated with this chest pain. There was no complaint of orthopnea or PND. There was no complaint of shortness of breath at that time. There was no episode of diaphoresis during this episode of chest pain. Because of this chest pain, she went to an urgent care and she was referred to come to the ER Initial lab work done in the ER showed WBC 8, hemoglobin 15.5, sodium 137, potassium 4.4, BUN 19, creatinine 0.86, glucose 101, troponin 0.012 EKG done in the ER showed heart rate of 91, no ST segment elevation or depression seen, no T-wave inversions seen. Chest x-ray done in the ER showed no acute cardiopulmonary process Patient admitted to internal medicine service REVIEW OF SYSTEMS: CONSTITUTIONAL: No fever, no malaise, no fatigue. HEENT: No recent visual problems or hearing problems. Denied any sore throat. CARDIOVASCULAR: As mentioned HPI PULMONARY: Mentioned above GASTROINTESTINAL: No diarrhea, no nausea, no vomiting, no abdominal pain. NEUROLOGICAL: No headaches, no weakness, no numbness. HEMATOLOGICAL: Denies any bleeding or petechiae. GENITOURINARY: Denies any burning micturition, frequency, or urgency. MUSCULOSKELETAL/RHEUMATOLOGICAL: Denies any joint pain, swelling, or any muscle pain. ENDOCRINE: Denies any polyuria or polydipsia. The rest of the 14-point review of systems is negative. PHYSICAL EXAMINATION: GENERAL: The patient is alert and oriented x3, not in any acute distress. Well developed, well nourished. HEENT: Pupils are round and equally reacting to light. EOMI. No scleral icterus. No conjunctival pallor. Normocephalic, atraumatic. No pharyngeal erythema. No thyromegaly. CARDIOVASCULAR: S1 and S2 present. No murmurs, rubs, or gallops. PULMONARY: Chest is clear to auscultation, no wheezing or crackles. ABDOMEN: Soft, nontender, nondistended, normoactive bowel sounds. No palpable organomegaly. MUSCULOSKELETAL: No joint swelling or deformity. EXTREMITIES: No cyanosis, clubbing, or pedal edema. NEUROLOGICAL: Gross neurological examination did not reveal any focal deficits. SKIN: No rashes. Assessment and plan Chest pain, rule out acute coronary syndrome Monitor vital signs Monitor CBC Monitor CMP Continue telemetry monitoring Trend troponin Ordered 2D echo Ordered D-dimer Continue symptomatic treatment with as needed Tylenol Consult cardiology Labs and medication were reviewed.. Continue same treatment. Continue with symptomatic treatment. Resume home medication. Monitor labs and vitals. DVT and GI prophylaxis. Further recommendations as per clinical course of the patient Dictation was produced using [employer] dictation software. please excuse any grammatical, word or spelling errors. Past Medical History Additional Past Medical History / Comment(s): osteoporosis, left inguinal hernia, occassional UTI. reports has no major medical conditions "but doesnt go to the doctor much" recent negative stress test History of Any Multi-Drug Resistant Organisms: None Reported Past Surgical History: Hysterectomy Additional Past Surgical History / Comment(s): hemmorhoidectomy, neck surgery Past Anesthesia/Blood Transfusion Reactions: No Reported Reaction Past Psychological History: No Psychological Hx Reported Smoking Status: Former smoker - Past Family History Father Family Medical History: Cancer Additional Family Medical History / Comment(s): colon Sister(s) History Unknown: Yes Family Medical History: Cancer Additional Family Medical History / Comment(s): lung Medications and Allergies Home Medications Medication Instructions Recorded Confirmed Type Cholecalciferol [Vitamin D3 (25 25 mcg PO DAILY 04/05/22 06/13/24 History Mcg = 1000 Iu)] Magnesium Oxide [Magnesium] 500 mg PO DAILY 04/05/22 06/13/24 History Ascorbic Acid [Vitamin C] 1,000 mg PO DAILY 06/13/24 06/13/24 History Ginkgo Biloba [place] Extract [Ginkgo] 60 mg PO DAILY 06/13/24 06/13/24 History [place]-3/Dha/Epa/Fish Oil [Fish Oil 1 cap PO DAILY 06/13/24 06/13/24 History 1,000 mg Softgel] Allergies Allergy/AdvReac Type Severity Reaction Status Date / Time No Known Allergies Allergy Verified 06/13/24 20:09 Physical Exam Vitals: Vital Signs Temp Pulse Pulse Resp BP Pulse Ox 06/14/24 07:10 67 17 143/69 96 06/14/24 07:00 97.5 F L 06/14/24 05:00 63 18 123/56 96 06/14/24 03:15 68 17 127/54 94 L 06/14/24 01:29 78 18 115/57 93 L 06/14/24 00:45 62 18 122/62 90 L 06/13/24 20:55 98.4 F 71 17 130/74 97 06/13/24 19:05 67 16 125/72 97 06/13/24 18:02 20 06/13/24 18:01 75 06/13/24 18:00 98 F 75 20 170/85 98 06/13/24 17:59 85 20 170/85 98 06/13/24 16:08 98.0 F 100 17 175/99 95 Intake and Output 06/13/24 06/14/24 06/14/24 22:59 06:59 14:59 Other: Weight 54.431 kg Results CBC & Chem 7: 06/13/24 16:36 06/13/24 16:36 Labs: Abnormal Lab Results - Last 24 Hours (Table) 06/13/24 06/13/24 Range/Units 16:36 16:36 Hct 48.4 H (34.0-46.0) % BUN 19 H (7-17) mg/dL Glucose 101 H (74-99) mg/dL
[2024-06-14] MEDS: ENOXAPARIN 40 MG/0.4 ML SYRINGE SQ SCH (09:47)
[2024-06-14] MEDS: MAGNESIUM OXIDE 400 MG TAB PO SCH (09:47)
[2024-06-14] MEDS: ASCORBIC ACID 500 MG TAB PO SCH (09:47)
--- NOTE | 2024-06-14 13:46 | P.CRDCN ---
History of Present Illness Consult date: 06/14/24 History of present illness: This is an 88-year-old female patient who is in good physical and mental shape for her age with no significant past medical history of CAD or hypertension or dyslipidemia or diabetes presented to the hospital complaining of chest discomfort. She describes discomfort in the left lower chest with no radiation to the arms or neck or shoulder or back as a sharp kind of discomfort with no associated symptoms of shortness of breath or sweating or dizziness or lightheadedness or any feeling of heart racing or fluttering or presyncope or syncope. Currently she is chest pain-free. She underwent further evaluation including an EKG showing sinus mechanism with RBBB. Troponin came to be unremarkable be D-dimer came into the unremarkable chest x-ray came in to be unremarkable. No rash on the skin. No history of CAD or heart failure or ca rdiac arrhythmia never seen by a belt tender before. As a matter fact she does not have any comorbidities. Currently she is chest pain-free and she would like to go home. The physical examination is remarkable for regular rhythm with a distant heart sounds and systolic murmur at the right upper sternal border with clear breathing sounds bilaterally and no edema was noted in the lower extremiti es Assessment Atypical chest discomfort versus noncardiac chest discomfort RBBB Plan Acute coronary event was ruled out Pulmonary embolism was ruled out The patient would like to go home which I think not unreasonable Follow-up with the patient as an outpatient and consider further cardiac testing as an outpatient Past Medical History Additional Past Medical History / Comment(s): osteoporosis, left inguinal hernia, occassional UTI. reports has no major medical conditions "but doesnt go to the doctor much" recent negative stress test History of Any Multi-Drug Resistant Organisms: None Reported Past Surgical History: Hysterectomy Additional Past Surgical History / Comment(s): hemmorhoidectomy, neck surgery Past Anesthesia/Blood Transfusion Reactions: No Reported Reaction Past Psychological History: No Psychological Hx Reported Smoking Status: Former smoker - Past Family History Father Family Medical History: Cancer Additional Family Medical History / Comment(s): colon Sister(s) History Unknown: Yes Family Medical History: Cancer Additional Family Medical History / Comment(s): lung Medications and Allergies Home Medications Medication Instructions Recorded Confirmed Type Cholecalciferol [Vitamin D3 (25 25 mcg PO DAILY 04/05/22 06/13/24 History Mcg = 1000 Iu)] Magnesium Oxide [Magnesium] 500 mg PO DAILY 04/05/22 06/13/24 History Ascorbic Acid [Vitamin C] 1,000 mg PO DAILY 06/13/24 06/13/24 History Ginkgo Biloba [place] Extract [Ginkgo] 60 mg PO DAILY 06/13/24 06/13/24 History [place]-3/Dha/Epa/Fish Oil [Fish Oil 1 cap PO DAILY 06/13/24 06/13/24 History 1,000 mg Softgel] Allergies Allergy/AdvReac Type Severity Reaction Status Date / Time No Known Allergies Allergy Verified 06/13/24 20:09 Physical Exam Vitals: Vital Signs Temp Pulse Pulse Resp BP Pulse Ox 06/14/24 07:10 67 17 143/69 96 06/14/24 07:00 97.5 F L 06/14/24 05:00 63 18 123/56 96 06/14/24 03:15 68 17 127/54 94 L 06/14/24 01:29 78 18 115/57 93 L 06/14/24 00:45 62 18 122/62 90 L 06/13/24 20:55 98.4 F 71 17 130/74 97 06/13/24 19:05 67 16 125/72 97 06/13/24 18:02 20 06/13/24 18:01 75 06/13/24 18:00 98 F 75 20 170/85 98 06/13/24 17:59 85 20 170/85 98 06/13/24 16:08 98.0 F 100 17 175/99 95 Intake and Output 06/13/24 06/14/24 06/14/24 22:59 06:59 14:59 Other: Weight 54.431 kg Results 06/13/24 16:36 06/13/24 16:36 Cardiac Enzymes 06/13/24 06/13/24 06/13/24 Range/Units 16:36 16:36 21:01 AST 25 (14-36) U/L Troponin I <0.012 <0.012 (0.000-0.034) ng/mL 06/14/24 Range/Units 00:08 AST (14-36) U/L Troponin I <0.012 (0.000-0.034) ng/mL Coagulation 06/13/24 Range/Units 16:36 PT 10.6 (10.0-12.5) sec APTT 25.0 (22.0-30.0) sec CBC 06/13/24 Range/Units 16:36 WBC 8.0 (3.8-10.6) k/uL RBC 5.14 (3.80-5.40) m/uL Hgb 15.5 (11.4-16.0) gm/dL Hct 48.4 H (34.0-46.0) % Plt Count 231 (150-450) k/uL Comprehensive Metabolic Panel 06/13/24 Range/Units 16:36 Sodium 137 (137-145) mmol/L Potassium 4.4 (3.5-5.1) mmol/L Chloride 100 (98-107) mmol/L Carbon Dioxide 27 (22-30) mmol/L BUN 19 H (7-17) mg/dL Creatinine 0.86 (0.52-1.04) mg/dL Glucose 101 H (74-99) mg/dL Calcium 9.6 (8.4-10.2) mg/dL AST 25 (14-36) U/L ALT 19 (4-34) U/L Alkaline Phosphatase 57 (38-126) U/L Total Protein 7.1 (6.3-8.2) g/dL Albumin 4.5 (3.5-5.0) g/dL Current Medications Generic Name Dose Route Start Last Admin Trade Name Freq PRN Reason Stop Dose Admin Acetaminophen 650 mg 06/13/24 20:52 Acetaminophen Tab 325 Mg Tab PO Q6HR PRN Mild Pain or Fever > 100.5 Al Hydroxide/Mg Hydroxide 15 ml 06/13/24 20:52 Mag Hydrox/Al Hydrox/Simeth 30 Ml Cup PO Q6HR PRN Indigestion Alprazolam 0.25 mg 06/13/24 20:52 Alprazolam 0.25 Mg Tab PO Q6HR PRN Anxiety Ascorbic Acid 1,000 mg 06/14/24 09:00 06/14/24 09:47 Ascorbic Acid 500 Mg Tab PO 1,000 mg DAILY [facility] Administration Calcium Carbonate/Glycine 1,000 mg 06/13/24 20:52 Calcium Carbonate 500 Mg Chewable PO Q4HR PRN Dyspepsia Enoxaparin Sodium 40 mg 06/14/24 09:00 06/14/24 09:47 Enoxaparin 40 Mg/0.4 Ml Syringe SQ 40 mg DAILY [facility] Administration Famotidine 20 mg 06/15/24 09:00 Famotidine 20 Mg Tab PO DAILY [facility] Magnesium Oxide 400 mg 06/14/24 09:00 06/14/24 09:47 Magnesium Oxide 400 Mg Tab PO 400 mg DAILY [place] Administration Naloxone HCl 0.2 mg 06/13/24 20:52 Naloxone 0.4 Mg/Ml 1 Ml Vial IV Q2M PRN Opioid Reversal Ondansetron HCl 4 mg 06/13/24 20:52 Ondansetron 4 Mg/2 Ml Vial IVP Q8HR PRN Nausea And Vomiting Tramadol HCl 50 mg 06/13/24 20:52 Tramadol 50 Mg Tab PO Q6H PRN Moderate Pain (Scale 4 to 6) Intake and Output 06/13/24 06/14/24 06/14/24 22:59 06:59 14:59 Other: Weight 54.431 kg 06/13/24 16:36 06/13/24 16:36
[2024-06-15] MEDS ORDERED: FAMOTIDINE 20 MG TAB PO SCH (09:00)
== END 2024-06-14 14:55 | disposition home or self-care (01) ==
LOC: EC 15:35 → 6NMEDSUR 20:56
PROVIDERS: ADMIT Hospitalist; ATTEND Hospitalist
DX: R07.89 Other chest pain (principal); I45.10 Unspecified right bundle-branch block; M81.0 Age-related osteoporosis without current pathological fracture; Z87.891 Personal history of nicotine dependence
CPT/HCPCS: 96372; 99285; 36415; 93005; 85379; 80053; 85652; 83690; 83735; 84484 ×2; 85025; 85610; 85730; 86140; 71046; G0378 ×2; J1650